=== PATIENT | female | born 1940 | race Caucasian/White ===

== ENCOUNTER → 2017-09-28 | Outpatient (CLI) | payer MEDICARE, BC ==
[~2017-09-28] MED LIST: ACET325; ALBU90OI INH; AMOCLA875 PO; AMYLIPPRO PO; ASPI81EC; ASTAXANTHIN4 MG; AZIT250 PO; Aspir 8181 MG; BENADRYL 25MG; BIOTIN-D1 GM; BISA5EC; BUPR150T2 PO; BUPR75 PO; CHOL10002; CIPR500 PO; CODACE30 PO; CREON; CREON DR 24,001 EACH PO; CYAN500; CYCL10 PO; DIAZ5 PO; DIPH25 PO; DIPH50; DOXE10 PO; ESTR1; ESTR2; FAMO20 PO; GABA400; GUAI600T33; HYDACE5; HYDACE5 PO; HYDCHL12.5; KRILL OIL; L-LYSINE; LEVSOD100; LORA.5 PO; MAGCHL64ER; MELA3; MELA3 PO; META800 PO; METPRE4DP PO; METR500; MOMENI; MOMENI INH; OMEP20ER; ONDA4ODT MM; ONDA8ODT MM; PRED10 PO; PRED20 PO; PSYL5.85P; PYRI100; Percocet 5-3251 EACH PO; Prilosec Otc20 MG PO; Synthroid/Lev0.05 MG PO; TAMO10; TELM80; THYR60; UBID100; WAL-DRYL25 MG PO
[2017-09-28 17:43] LABS: Source, Urine Clean Catch
[2017-09-28 18:34] LABS: Appearance, Urine Clear (Clear); Bilirubin, Urine Neg (Neg); Blood, Urine 2+ (Neg); Color, Urine Yellow (P-Yellow); Glucose Qualitative, Urine Neg (Neg); Ketones, Urine Neg (Neg); Leukocyte Esterase, Urine Neg (Neg); Nitrite, Urine Neg (Neg); Protein, Urine Neg (Neg); Specific Gravity, Urine 1.015 (1.003-1.022); Urobilinogen, Urine NORM (Normal)
[2017-09-28 18:53] LABS: Bacteria Few /hpf; Squamous Epithelial Cells Few /hpf (Few); White Blood Cells, Urine 0-2 /hpf (0-5)
== END | disposition home or self-care (01) ==
LOC: LAB SHORT 17:00 → LAB 17:00 → LAB FUT 09-09 11:10 → EDSTATUS 09-09 11:10
PROVIDERS: Internal Medicine
DX: R30.0 Dysuria (principal)
CPT/HCPCS: 81001

== ENCOUNTER → 2018-03-22 | Outpatient (CLI) | payer MEDICARE, BC ==
[~2018-03-22] MED LIST changes: -ASTAXANTHIN4 MG; -Aspir 8181 MG; -BIOTIN-D1 GM; -CHOL10002; -LORA.5 PO; -MAGCHL64ER; -PYRI100; -Synthroid/Lev0.05 MG PO; -TAMO10; -WAL-DRYL25 MG PO
[2018-03-22 16:48] LABS: Source, Urine Clean Catch
[2018-03-22 19:08] LABS: Appearance, Urine Clear (Clear); Bilirubin, Urine Neg (Neg); Blood, Urine 2+ (Neg); Color, Urine Yellow (P-Yellow); Glucose Qualitative, Urine Neg (Neg); Ketones, Urine Neg (Neg); Leukocyte Esterase, Urine Neg (Neg); Nitrite, Urine Neg (Neg); Protein, Urine Neg (Neg); Urobilinogen, Urine NORM (Normal)
[2018-03-22 19:16] LABS: Bacteria Few /hpf; Squamous Epithelial Cells Few /hpf (Few); White Blood Cells, Urine 0-2 /hpf (0-5)
== END | disposition home or self-care (01) ==
LOC: OLS 16:47 → LAB SHORT 16:47
PROVIDERS: Internal Medicine
DX: R35.0 Frequency of micturition (principal)
CPT/HCPCS: 81001

== ENCOUNTER 2018-05-18 09:44 | Emergency (ER) | payer MEDICARE, BC ==
[~2018-05-18] VITALS: Ht 160 cm; Wt 90.7 kg
[~2018-05-18 09:44] MED LIST changes: +ASTAXANTHIN4 MG; +Aspir 8181 MG; +BIOTIN-D1 GM; +CHOL10002; +MAGCHL64ER; +PYRI100; +TAMO10; +WAL-DRYL25 MG PO
[2018-05-18 10:04] LABS: BASOPHILS ABSOLUTE AUTO 0.01 K/mm3 (0.00-0.23); BASOPHILS PERCENT AUTO 0 % (0-2); EOSINOPHILS ABSOLUTE AUTO 0.01 K/mm3 (0.00-0.68); EOSINOPHILS PERCENT AUTO 0 % (0-6); Hematocrit 40.9 % (33.0-51.0); Hemoglobin 13.6 g/dL (11.5-16.0); IMMATURE GRAN ABSOLUTE AUTO 0.15 K/mm3 (0.00-0.10); IMMATURE GRAN PERCENT AUTO 2 % (0-1); LYMPHOCYTES ABSOLUTE AUTO 0.39 K/mm3 (0.84-5.20); LYMPHOCYTES PERCENT AUTO 5 % (21-46); MONOCYTES ABSOLUTE AUTO 1.74 K/mm3 (0.16-1.47); MONOCYTES PERCENT AUTO 23 % (4-13); Mean Corpuscular HGB 32.1 pg (26.0-34.0); Mean Corpuscular HGB Conc 33.3 g/dL (31.5-36.5); Mean Corpuscular Volume 97 fL (80-100); Mean Platelet Volume 10.2 fL (9.1-12.4); NEUTROPHILS ABSOLUTE AUTO 5.37 K/mm3 (1.96-9.15); NEUTROPHILS PERCENT AUTO 70 % (41-73); Platelet Count 145 K/mm3 (150-400); RDW Coefficient Variation 15.4 % (11.7-14.2); RDW Standard Deviation 54.5 fL (35.1-46.3); Red Blood Cell Count 4.24 M/mm3 (3.80-5.20); White Blood Cell Count 7.67 K/mm3 (4.00-11.30)
[2018-05-18] MEDS ORDERED: LORA.5 PO (10:06)
[2018-05-18] MEDS ORDERED: Synthroid/Lev0.05 MG PO (10:06)
[2018-05-18 10:21] LABS: Alanine Aminotransfer (ALT/SGP 208 U/L (12-78); Albumin, Blood 3.4 g/dL (3.4-5.0); Albumin/Globulin Ratio 0.8 (0.8-1.8); Alk Phos 158 U/L (50-136); Anion Gap 8 mmol/L (6-16); Aspartate Aminotrans (AST/SGOT 192 U/L (12-37); Bilirubin, Total 1.1 mg/dL (0.1-1.0); Blood Urea Nitrogen 21 mg/dL (8-24); Bun/Creatinine Ratio 24.9 (12.0-20.0); CO2, Blood 25 mmol/L (21-32); Calcium, Blood 8.9 mg/dL (8.5-10.1); Chloride, Blood 108 mmol/L (98-108); Creatinine, Blood 0.84 mg/dL (0.40-1.00); Globulin, Blood 4.1 g/dL (2.2-4.0); Glomerular Filtration Rate >60 (60-); Glucose, Blood 124 mg/dL (70-99); Potassium, Blood 4.4 mmol/L (3.5-5.5); Sodium, Blood 141 mmol/L (136-145); Total Protein, Blood 7.5 g/dL (6.4-8.2)
[2018-05-18 10:22] LABS: Source, Urine Clean Catch
[2018-05-18 10:50] LABS: Bilirubin, Urine Neg (Neg); Blood, Urine 1+ (Neg); Glucose Qualitative, Urine Neg (Neg); Ketones, Urine 1+ (Neg); Leukocyte Esterase, Urine Neg (Neg); Nitrite, Urine Neg (Neg); Protein, Urine 1+ (Neg); Urobilinogen, Urine 1+ (Normal)
[2018-05-18 11:02] LABS: Appearance, Urine Clear (Clear); Color, Urine Yellow (P-Yellow)
[2018-05-18 11:10] LABS: Bacteria Not Seen /hpf; Red Blood Cells, Urine 0-2 /hpf (0-2); Squamous Epithelial Cells Many /hpf (Few); White Blood Cells, Urine Not Seen /hpf (0-5)
[2018-05-18 16:08] LABS: Cholesterol 167 mg/dL (50-200); HDL Cholesterol 56 mg/dL (>39); LDL/HDL RATIO 1.6; Low Density Lipoprotein Chol 92 mg/dL (0-110); Triglycerides 94 mg/dL (30-160); Very Low Density Lipoprot Chol 18 mg/dL (6-32)
== END 2018-05-18 13:05 | disposition home or self-care (01) ==
LOC: ER 09:44
PROVIDERS: Emergency Medicine; Internal Medicine
DX: R10.9 Unspecified abdominal pain (principal); Z88.5 Allergy status to narcotic agent; Z88.8 Allergy status to other drugs, medicaments and biological substances; Z88.1 Allergy status to other antibiotic agents; Z88.0 Allergy status to penicillin; Z91.048 Other nonmedicinal substance allergy status; Z79.899 Other long term (current) drug therapy; Z79.82 Long term (current) use of aspirin; I10 Essential (primary) hypertension; Z87.891 Personal history of nicotine dependence
CPT/HCPCS: 36415; 80053; 80061; 81001; 83036; 83690; 85025; 99284

== ENCOUNTER 2018-12-03 09:38 | Emergency (ER) | payer MEDICARE, BC ==
[~2018-12-03] VITALS: Ht 157.5 cm; Wt 78.5 kg
[~2018-12-03 09:38] MED LIST changes: -GABA400; +GABA400 PO; +LORA.5 PO; +Synthroid/Lev0.05 MG PO; -TAMO10; +TAMO10 PO
[2018-12-03 10:25] LABS: BASOPHILS ABSOLUTE AUTO 0.02 K/mm3 (0.00-0.23); BASOPHILS PERCENT AUTO 0 % (0-2); EOSINOPHILS ABSOLUTE AUTO 0.02 K/mm3 (0.00-0.68); EOSINOPHILS PERCENT AUTO 0 % (0-6); Hematocrit 41.2 % (33.0-51.0); Hemoglobin 13.5 g/dL (11.5-16.0); IMMATURE GRAN ABSOLUTE AUTO 0.05 K/mm3 (0.00-0.10); IMMATURE GRAN PERCENT AUTO 1 % (0-1); LYMPHOCYTES ABSOLUTE AUTO 1.73 K/mm3 (0.84-5.20); LYMPHOCYTES PERCENT AUTO 24 % (21-46); MONOCYTES ABSOLUTE AUTO 1.69 K/mm3 (0.16-1.47); MONOCYTES PERCENT AUTO 24 % (4-13); Mean Corpuscular HGB Conc 32.8 g/dL (31.5-36.5); Mean Corpuscular Volume 95 fL (80-100); Mean Platelet Volume 10.9 fL (9.1-12.4); NEUTROPHILS ABSOLUTE AUTO 3.63 K/mm3 (1.96-9.15); NEUTROPHILS PERCENT AUTO 51 % (41-73); Platelet Count 168 K/mm3 (150-400); RDW Coefficient Variation 14.7 % (11.7-14.2); RDW Standard Deviation 51.2 fL (35.1-46.3); Red Blood Cell Count 4.35 M/mm3 (3.80-5.20); White Blood Cell Count 7.14 K/mm3 (4.00-11.30)
[2018-12-03 10:40] LABS: Alanine Aminotransfer (ALT/SGP 18 U/L (12-78); Albumin, Blood 3.5 g/dL (3.4-5.0); Albumin/Globulin Ratio 0.9 (0.8-1.8); Alk Phos 75 U/L (50-136); Anion Gap 10 mmol/L (6-16); Aspartate Aminotrans (AST/SGOT 15 U/L (12-37); Bilirubin, Total 0.8 mg/dL (0.1-1.0); Blood Urea Nitrogen 20 mg/dL (8-24); Bun/Creatinine Ratio 25.5 (12.0-20.0); CO2, Blood 24 mmol/L (21-32); Calcium, Blood 9.4 mg/dL (8.5-10.1); Chloride, Blood 109 mmol/L (98-108); Creatinine, Blood 0.78 mg/dL (0.40-1.00); Globulin, Blood 3.9 g/dL (2.2-4.0); Glomerular Filtration Rate >60 (60-); Glucose, Blood 107 mg/dL (70-99); Sodium, Blood 143 mmol/L (136-145); Total Protein, Blood 7.4 g/dL (6.4-8.2)
== END 2018-12-03 12:14 | disposition home or self-care (01) ==
LOC: ER 09:38
PROVIDERS: Internal Medicine
DX: K59.00 Constipation, unspecified (principal); Z88.5 Allergy status to narcotic agent; Z88.8 Allergy status to other drugs, medicaments and biological substances; Z88.2 Allergy status to sulfonamides; Z91.048 Other nonmedicinal substance allergy status; Z88.1 Allergy status to other antibiotic agents; Z79.899 Other long term (current) drug therapy; I10 Essential (primary) hypertension; Z87.891 Personal history of nicotine dependence
CPT/HCPCS: 36415; 74176; 80053; 83690; 85025; 96360; 99284-25; J7120

== ENCOUNTER 2019-02-21 08:21 | Day surgery (SDC) | payer MEDICARE, BC ==
[~2019-02-21] VITALS: Ht 157.5 cm; Wt 80.9 kg
[~2019-02-21 08:21] MED LIST changes: +ALBU2.5V5 INH; +ALBU90OI61 INH; +ASPI81CH PO; +Bupropion HCl100 MG PO; +CHOL10002 PO; +CYAN500 PO; +QVAR REDIHALE10.6 GM INH; +TELM80 PO; +TURMERIC500 M2 PO; +VITAMIN B-625 MG PO; +XYLIMELTS550 MG MM
--- NOTE | 2019-02-21 10:23 | NUR ---
Ambulatory in Day Surgery History, Chart, Medications and Allergies reviewed before start of procedure. Lungs clear T/O to Auscultation. Patient confirms NPO status and agrees with scheduled surgery. Pre-Op teaching done. Pt verbalizes understanding.
--- NOTE | 2019-02-21 12:47 | NUR ---
02/21/19 1247 [place] PATIENT VOIDED PRIOR TO COMING TO OR. NEW IV START BY FELIPE Hodgson RN TO LEFT WRIST. SECOND DOSE OF ANCEF 2 GMS GIVEN D/T INFILTRATE. WARM COMPRESS APPLIED.
--- NOTE | 2019-02-21 17:00 | NUR ---
PT REPORTS HAVING PAIN. DISCUSSED ORDERS WITH ORTHO COORDINATOR WHO DISCUSSED ORDERS WITH DR CORREA, SEE ORDERS. WILL MED PT FOR PAIN PRN.
--- NOTE | 2019-02-21 19:00 | NUR ---
SHIFT SUMMARY PT WAS MED FOR PAIN AND NAUSEA. PT NOW EATING AND DRINKING. REPORTS PAIN MUCH BETTER. PT HAD PROCEDURE TODAY. PAS IN PLACE. POLAR PAC IN PLACE.
--- NOTE | 2019-02-21 21:14 | NUR ---
pt reports PAS stocking only on R leg. RN Nataliia checked orders which state bilateral calf PAS. This RN applied PAS on operative leg, operating WNL. Pt states she "cannot feel" the pump tightening on L (operative) leg. This RN assessed machine and pump, operating WNL. Pt questions the pump's operating. this RN acquired new PAS pump and placed bilateral SCD on pt, assessed operative of pump, WNL. educated pt on the normal operation of PAS pump. pt states she has a small "numb" patch on lateral l calf. This RN verified PAS is tightening wnl on ble, educated pt on the medications she has received this shift as well as DANYELL molina, ambulation. pt states understanding.
[2019-02-22 05:12] LABS: BASOPHILS ABSOLUTE AUTO 0.03 K/mm3 (0.00-0.23); BASOPHILS PERCENT AUTO 1 % (0-2); EOSINOPHILS ABSOLUTE AUTO 0.02 K/mm3 (0.00-0.68); EOSINOPHILS PERCENT AUTO 0 % (0-6); Hematocrit 33.8 % (33.0-51.0); Hemoglobin 10.8 g/dL (11.5-16.0); IMMATURE GRAN PERCENT AUTO 3 % (0-1); LYMPHOCYTES PERCENT AUTO 15 % (21-46); MONOCYTES ABSOLUTE AUTO 1.43 K/mm3 (0.16-1.47); MONOCYTES PERCENT AUTO 23 % (4-13); Mean Corpuscular HGB 30.9 pg (26.0-34.0); Mean Corpuscular Volume 97 fL (80-100); Mean Platelet Volume 10.3 fL (9.1-12.4); NEUTROPHILS ABSOLUTE AUTO 3.54 K/mm3 (1.96-9.15); NEUTROPHILS PERCENT AUTO 58 % (41-73); Platelet Count 131 K/mm3 (150-400); RDW Coefficient Variation 15.8 % (11.7-14.2); RDW Standard Deviation 55.7 fL (35.1-46.3); White Blood Cell Count 6.12 K/mm3 (4.00-11.30)
[2019-02-22 05:36] LABS: Anion Gap 3 mmol/L (6-16); Blood Urea Nitrogen 22 mg/dL (8-24); Bun/Creatinine Ratio 25.4 (12.0-20.0); CO2, Blood 29 mmol/L (21-32); Chloride, Blood 111 mmol/L (98-108); Creatinine, Blood 0.87 mg/dL (0.40-1.00); Glomerular Filtration Rate >60 (60-); Glucose, Blood 108 mg/dL (70-99); Magnesium, Blood 2.2 mg/dL (1.6-2.4); Potassium, Blood 4.2 mmol/L (3.5-5.5); Sodium, Blood 143 mmol/L (136-145)
--- NOTE | 2019-02-22 06:34 | NUR ---
SHIFT SUMMARY: PT POD #1 FOR LT TKA. A&O X4. VS WNL. ANDRZEJ WRAP CDI WITH POLAR PACK IN PLACE. PAIN MANAGED WITH TYLENOL, TORADOL AND 10MG OXY PER EMAR. PT AMBULATING WITH MINIMAL ASSIST AND FWW. VOIDING AND GAIL PO. DENIES N/V.
--- NOTE | 2019-02-22 13:59 | NUR ---
DR CORREA IN TO SEE PT. DRESSING CHANGED TO KNEE. THERAPY NOW WORKING W/PT.
[2019-02-22] MEDS ORDERED: OXYC5 PO (14:54)
[2019-02-22] MEDS ORDERED: ASPI325 PO (14:58)
== END 2019-02-22 15:53 | disposition home or self-care (01) ==
LOC: ORSCMMR 08:21 → ORD 12:00 → SURS 15:52 → ORSCMMR 02-22 15:53 → SURS 02-22 15:53
PROVIDERS: Orthopaedic Surgery
PROC: 0SRD0J9 Replacement of Left Knee Joint with Synthetic Substitute, Cemented, Open Approach (ICD-10-PCS; principal; 2019-02-21 12:00)
DX: M17.12 Unilateral primary osteoarthritis, left knee (principal); E03.9 Hypothyroidism, unspecified; I10 Essential (primary) hypertension; I25.10 Atherosclerotic heart disease of native coronary artery without angina pectoris; G47.33 Obstructive sleep apnea (adult) (pediatric); K21.9 Gastro-esophageal reflux disease without esophagitis; Z79.899 Other long term (current) drug therapy; Z79.82 Long term (current) use of aspirin
CPT/HCPCS: 36415; 73560-LT; 80048; 83735; 85025; 86850; 86900; 86901; 88300; 97110; 97116; 97162; 97530; C1713; C1776; J0171; J0690; J0735; J1885; J2370; J2405; J2704; J2795; J3010; J7120

== ENCOUNTER → 2020-02-19 | Outpatient (CLI) | payer MEDICARE, BC ==
[~2020-02-19] MED LIST changes: +ASPI325 PO; +OXYC5 PO
== END | disposition home or self-care (01) ==
LOC: PLD 11:55 → LAB SHORT 11:55
DX: D22.62 Melanocytic nevi of left upper limb, including shoulder (principal)
CPT/HCPCS: 88305

== ENCOUNTER 2021-01-02 11:56 | Emergency (ER) | payer MEDICARE, BC ==
[~2021-01-02] VITALS: Ht 157.5 cm; Wt 97.5 kg
[2021-01-02 12:59] LABS: BASOPHILS ABSOLUTE AUTO 0.02 K/mm3 (0.00-0.23); BASOPHILS PERCENT AUTO 0 % (0-2); EOSINOPHILS ABSOLUTE AUTO 0.01 K/mm3 (0.00-0.68); EOSINOPHILS PERCENT AUTO 0 % (0-6); Hematocrit 40.3 % (33.0-51.0); Hemoglobin 13.2 g/dL (11.5-16.0); IMMATURE GRAN ABSOLUTE AUTO 0.11 K/mm3 (0.00-0.10); IMMATURE GRAN PERCENT AUTO 1 % (0-1); LYMPHOCYTES ABSOLUTE AUTO 2.06 K/mm3 (0.84-5.20); LYMPHOCYTES PERCENT AUTO 27 % (21-46); MONOCYTES ABSOLUTE AUTO 1.73 K/mm3 (0.16-1.47); MONOCYTES PERCENT AUTO 22 % (4-13); Mean Corpuscular HGB Conc 32.8 g/dL (31.5-36.5); Mean Corpuscular Volume 95 fL (80-100); Mean Platelet Volume 10.3 fL (9.1-12.4); NEUTROPHILS ABSOLUTE AUTO 3.83 K/mm3 (1.96-9.15); NEUTROPHILS PERCENT AUTO 49 % (41-73); Platelet Count 156 K/mm3 (150-400); RDW Coefficient Variation 15.8 % (11.7-14.2); Red Blood Cell Count 4.26 M/mm3 (3.80-5.20); White Blood Cell Count 7.76 K/mm3 (4.00-11.30)
[2021-01-02 13:27] LABS: Alanine Aminotransfer (ALT/SGP 23 U/L (12-78); Albumin, Blood 3.5 g/dL (3.4-5.0); Albumin/Globulin Ratio 0.9 (0.8-1.8); Alk Phos 90 U/L (50-136); Anion Gap 6 mmol/L (6-16); Aspartate Aminotrans (AST/SGOT 20 U/L (12-37); Bilirubin, Total 0.5 mg/dL (0.1-1.0); Blood Urea Nitrogen 23 mg/dL (8-24); Bun/Creatinine Ratio 26.1 (12.0-20.0); CO2, Blood 29 mmol/L (21-32); Calcium, Blood 9.2 mg/dL (8.5-10.1); Chloride, Blood 108 mmol/L (98-108); Creatinine, Blood 0.88 mg/dL (0.40-1.00); Glomerular Filtration Rate >60 (60-); Glucose, Blood 112 mg/dL (70-99); Sodium, Blood 143 mmol/L (136-145); Total Protein, Blood 7.5 g/dL (6.4-8.2)
[2021-01-02] MEDS ORDERED: ASPI81CH PO (15:02)
[2021-01-02] MEDS ORDERED: ONDA4ODT MM (18:01)
== END 2021-01-02 18:12 | disposition home or self-care (01) ==
LOC: ER 11:56
PROVIDERS: Physician Assistant
DX: K52.9 Noninfective gastroenteritis and colitis, unspecified (principal); E03.9 Hypothyroidism, unspecified; I10 Essential (primary) hypertension; J44.9 Chronic obstructive pulmonary disease, unspecified; Z79.899 Other long term (current) drug therapy; Z88.5 Allergy status to narcotic agent; Z88.0 Allergy status to penicillin; Z87.891 Personal history of nicotine dependence
CPT/HCPCS: 74176; 80053; 81000; 83690; 84484; 85025; 93005; 93010; 99284-25

== ENCOUNTER 2021-10-15 12:25 | Day surgery (SDC) | payer MEDICARE, BC ==
[~2021-10-15] VITALS: Ht 157.5 cm; Wt 100.0 kg
[2021-10-15] MEDS ORDERED: ACET325 (12:49)
--- NOTE | 2021-10-15 13:29 | NUR ---
10/15/21 1329 MARLA PAULINO MULTIPLE ATTEMPTS AT IV. FIRST ATTEMPTT BY MA IN R HAND INFILTRATED. SECOND ATTEMPT BY MA IN L HAND SUCCESSFUL.
== END 2021-10-15 15:37 | disposition home or self-care (01) ==
LOC: ORSCSDS 12:25
PROVIDERS: Internal Medicine Gastroenterology
PROC: 0DB78ZX Excision of Stomach, Pylorus, Via Natural or Artificial Opening Endoscopic, Diagnostic (ICD-10-PCS; principal; 2021-10-15 13:45)
PROC: 0DBE8ZX Excision of Large Intestine, Via Natural or Artificial Opening Endoscopic, Diagnostic (ICD-10-PCS; principal; 2021-10-15 13:45)
PROC: 0DB98ZX Excision of Duodenum, Via Natural or Artificial Opening Endoscopic, Diagnostic (ICD-10-PCS; principal; 2021-10-15 13:45)
PROC: 0DB58ZX Excision of Esophagus, Via Natural or Artificial Opening Endoscopic, Diagnostic (ICD-10-PCS; principal; 2021-10-15 13:45)
DX: R19.4 Change in bowel habit (principal); Z86.010 Personal history of colon polyps; K30 Functional dyspepsia; K21.9 Gastro-esophageal reflux disease without esophagitis; K31.7 Polyp of stomach and duodenum; K63.89 Other specified diseases of intestine; K44.9 Diaphragmatic hernia without obstruction or gangrene; K57.30 Diverticulosis of large intestine without perforation or abscess without bleeding; G47.33 Obstructive sleep apnea (adult) (pediatric); J44.9 Chronic obstructive pulmonary disease, unspecified; E66.01 Morbid (severe) obesity due to excess calories; Z68.41 Body mass index [BMI] 40.0-44.9, adult; Z79.82 Long term (current) use of aspirin
CPT/HCPCS: 88305; 88342; J2704

== ENCOUNTER → 2021-12-30 | Outpatient (CLI) | payer MEDICARE, BC ==
[2021-12-30 12:29] LABS: BASOPHILS ABSOLUTE AUTO 0.04 K/mm3 (0.00-0.23); BASOPHILS PERCENT AUTO 1 % (0-2); EOSINOPHILS ABSOLUTE AUTO 0.04 K/mm3 (0.00-0.68); EOSINOPHILS PERCENT AUTO 1 % (0-6); Hematocrit 39.7 % (33.0-51.0); Hemoglobin 12.9 g/dL (11.5-16.0); IMMATURE GRAN ABSOLUTE AUTO 0.05 K/mm3 (0.00-0.10); IMMATURE GRAN PERCENT AUTO 1 % (0-1); LYMPHOCYTES ABSOLUTE AUTO 2.14 K/mm3 (0.84-5.20); LYMPHOCYTES PERCENT AUTO 39 % (21-46); MONOCYTES ABSOLUTE AUTO 1.55 K/mm3 (0.16-1.47); MONOCYTES PERCENT AUTO 28 % (4-13); Mean Corpuscular HGB 30.6 pg (26.0-34.0); Mean Corpuscular HGB Conc 32.5 g/dL (31.5-36.5); Mean Corpuscular Volume 94 fL (80-100); Mean Platelet Volume 10.8 fL (9.1-12.4); NEUTROPHILS ABSOLUTE AUTO 1.67 K/mm3 (1.96-9.15); NEUTROPHILS PERCENT AUTO 31 % (41-73); Platelet Count 152 K/mm3 (150-400); RDW Coefficient Variation 16.6 % (11.7-14.2); RDW Standard Deviation 56.7 fL (35.1-46.3); Red Blood Cell Count 4.21 M/mm3 (3.80-5.20); White Blood Cell Count 5.49 K/mm3 (4.00-11.30)
[2021-12-30 12:56] LABS: Alanine Aminotransfer (ALT/SGP 21 U/L (12-78); Albumin, Blood 3.5 g/dL (3.4-5.0); Albumin/Globulin Ratio 0.9 (0.8-1.8); Alk Phos 106 U/L (50-136); Anion Gap 5 mmol/L (6-16); Aspartate Aminotrans (AST/SGOT 20 U/L (12-37); Bilirubin, Total 0.4 mg/dL (0.1-1.0); Blood Urea Nitrogen 19 mg/dL (8-24); Bun/Creatinine Ratio 25.4 (12.0-20.0); CO2, Blood 29 mmol/L (21-32); Calcium, Blood 9.3 mg/dL (8.5-10.1); Chloride, Blood 109 mmol/L (98-108); Creatinine, Blood 0.75 mg/dL (0.40-1.00); Glomerular Filtration Rate >60 (60-); Glucose, Blood 108 mg/dL (70-99); Potassium, Blood 3.9 mmol/L (3.5-5.5); Sodium, Blood 143 mmol/L (136-145); Total Protein, Blood 7.5 g/dL (6.4-8.2)
== END ==
LOC: LAB SHORT 10:25
PROVIDERS: Physician Assistant
DX: R60.9 Edema, unspecified (principal); R30.0 Dysuria
CPT/HCPCS: 80053; 83880; 85025; 87086